=== PATIENT | female | born 1990 | race Caucasian/White ===

== ENCOUNTER 2016-09-19 14:09 | Emergency (ER) | payer SELFPAY ==
[~2016-09-19] VITALS: Ht 162.6 cm; Wt 58.3 kg
--- OUTSIDE RECORDS SUMMARY | 2016-09-19 14:14 | XMS REPORT | Continuity of Care Document ---
Author Author [facility] Address Unknown Phone Unavailable Allergies Medications Problems Date Dx Coded Attending Type Code Diagnosis Diagnosed By 07/19/2012 SARAH CHINICA L D 785.1 PALPITATIONS 07/19/2012 SARAH CHINICA L D 786.05 SHORTNESS OF BREATH 07/19/2012 CHRISTINA CHINSSICA L D 786.50 CHEST PAIN NOS 07/20/2012 CHRISTINA CHINSSICA L D 623.5 NONINFECT VAG LEUKORRHEA 07/20/2012 SARAH CHINICA L D 785.1 PALPITATIONS 07/20/2012 SARAH CHINICA L D V70.8 GENERAL MEDICAL EXAM NEC 07/17/2013 SARAH CHINICA L D 724.5 BACKACHE NOS 11/27/2013 SARAH CHINICA L D 780.8 GENERAL HYPERHIDROSIS 11/27/2013 SARAH CHINICA L D 786.2 COUGH 11/27/2013 SARAH CHINICA L D V01.1 TUBERCULOSIS CONTACT 12/27/2013 ALEXEI PACHECO 783.21 LOSS OF WEIGHT 12/27/2013 ALEXEI PACHECO 785.6 ENLARGEMENT LYMPH NODES Procedures Code Description [place] [address] TTE W/DOPPLER, COMPLETE SARAH CHINICA Riddhi 07/19/2012 98129 ROUTINE VENIPUNCTURE SARAH CHINICA Riddhi 07/20/2012 05217 COMPREHEN METABOLIC PANEL SARAH CHINICA Riddhi 07/20/2012 77354 ACUTE HEPATITIS PANEL SARAH CHINICA Riddhi 07/20/2012 64852 ASSAY THYROID STIM HORMONE SARAH CHINICA L 07/20/2012 13849 COMPLETE CBC W/AUTO DIFF WBC SARAH CHINICA L 07/20/2012 00707 HIV-1/HIV-2, SINGLE ASSAY OMER CHIN 07/20/2012 17005 CULTURE, BACTERIA, OTHER OMER CHIN L 07/20/2012 54736 SMEAR, GRAM STAIN OMER CHIN L 07/20/2012 33842 X-RAY EXAM OF THORACIC SPINE OMER CHIN 07/17/2013 78543 ROUTINE VENIPUNCTURE OMER CHIN 11/27/2013 87074 CHEST X-RAY OMER CHIN L 11/27/2013 82872 COMPREHEN METABOLIC PANEL OMER CHIN 11/27/2013 90423 BL SMEAR W/DIFF WBC COUNT OMER CHIN L 11/27/2013 82650 COMPLETE CBC, AUTOMATED OMER CHIN L 11/27/2013 67412 MYCOPLASMA ANTIBODY OMER CHIN 11/27/2013 71465 ASSAY OF TOTAL THYROXINE ALEXEI PACHECO Linda 12/27/2013 83099 ASSAY OF FREE THYROXINE ALEXEI PACHECO Linda 12/27/2013 20236 ASSAY THYROID STIM HORMONE LIAT PÉREZPALEXEI D 12/27/2013 90263 ASSAY, TRIIODOTHYRONINE (T3) ALEXEI PACHECO D 12/27/2013 25333 FREE ASSAY (FT-3) ALEXEI PACHECO D 12/27/2013 04050 BL SMEAR W/DIFF WBC COUNT ALEXEI PACHECO D 12/27/2013 65127 COMPLETE CBC, AUTOMATED ALEXEI PACHECO D 12/27/2013 37516 MANUAL RETICULOCYTE COUNT ALEXEI PACHECO D 12/27/2013 86527 RBC SED RATE, NONAUTOMATED ALEXEI PACHECO D 12/27/2013 92990 HETEROPHILE ANTIBODIES ALEXEI PACHECO D 12/27/2013 Results Test Result Range CMP - 07/20/12 17:21 Osmo Calculated 275 MOSM 261-280 Sodium 142 MMOLL 137-145 T. Protein 7.8 G/DL 6.3-8.2 Potassium 3.6 MMOLL 3.6-5.0 T Bili 0.4 MG/DL 0.2-1.3 Calcium 9.1 MG/DL 8.4-10.2 BUN 14 MG/DL 7-21 Chloride 106 MMOLL 98-107 AST 20 U/L 15-46 ALT 18 U/L 7-56 Albumin 4.6 G/DL 3.5-5.0 A/G Ratio 1.4 RATIO 1.2-2.2 Bun/Creat 21.8 RATIO 7-25 Alk Phos 57 U/L 38-126 CO2 23 MMOLL 22-30 Glucose 93 MG/DL 65-110 Globulin 3.3 2.4-3.5 Creatinine 0.6 MG/DL 0.7-1.5 COMPLETE BLOOD COUNT - 07/20/12 17:21 Platelet 321 10^3u 142-424 MPV 10.1 FL 9.4-12.4 [place] # 0.61 10^3u 0.0-1.0 RBC 3.92 10^6u 4.04-6.13 [place] % 9.0 % 0-12 RDW 11.3 % 11.6-14.8 Neut # 3.82 10^3u 2.0-6.9 Neut % 56.7 % 37-80 WBC 6.75 10^3u 4.60-10.20 MCV 92.1 FL 80.0-97.0 Baso # 0.03 10^3u 0.0-0.1 Baso % 0.4 % 0-2 Eos # 0.42 10^3u 0-7 Eos % 6.2 % 0.0-0.7 Lymph % 27.7 % 10-50 MCHC 34.9 G/DL 31.8-35.4 MCH 32.1 PG 27.0-31.2 Lymph # 1.87 10^3u 0.6-3.4 HGB 12.6 G/DL 12.2-18.1 HCT 36.1 % 37.7-53.7 TSH - 07/20/12 17:21 TSH 2.25 UIUML 0.35-4.94 Hepatitis Panel - 07/20/12 17:21 Hepatitis Panel SMR Culture Genital - 07/20/12 17:21 Culture Genital [facility] HIV Antibodies, Western Blot - 07/20/12 17:21 HIV Antibodies, Western Blot NON-REACTIVE NON-REACTIVE COMPLETE BLOOD COUNT - 11/27/13 16:46 Platelet 274 10^3u 142-424 MPV 10.2 FL 9.4-12.4 [place] # 0.59 10^3u 0.0-1.0 Milam 6.0 RBC 3.93 10^6u 4.04-6.13 [place] % 10.4 % 0-12 RDW 11.3 % 11.6-14.8 Seg 43.0 Neut # 2.70 10^3u 2.0-6.9 Neut % 47.4 % 37-80 WBC 5.69 10^3u 4.60-10.20 MCV 94.1 FL 80.0-97.0 Baso # 0.03 10^3u 0.0-0.1 Baso % 0.5 % 0-2 Eos 12.0 Eos # 0.47 10^3u 0-0.7 Eos % 8.3 % 0-7 Lymph % 33.4 % 10-50 MCHC 34.6 G/DL 31.8-35.4 MCH 32.6 PG 27.0-31.2 Lymph # 1.90 10^3u 0.6-3.4 Lymph 39.0 HGB 12.8 G/DL 12.2-18.1 HCT 37.0 % 37.7-53.7 CMP - 11/27/13 16:46 Osmo Calculated 278 MOSM 261-280 Sodium 144 MMOLL 137-145 T. Protein 7.7 G/DL 6.3-8.2 Potassium 4.0 MMOLL 3.6-5.0 T Bili 0.5 MG/DL 0.2-1.3 Calcium 9.6 MG/DL 8.4-10.2 BUN 11 MG/DL 7-21 Chloride 107 MMOLL 98-107 AST 16 U/L 15-46 ALT 18 U/L 7-56 Albumin 4.6 G/DL 3.5-5.0 A/G Ratio 1.5 RATIO 1.2-2.2 Bun/Creat 15.9 RATIO 7-25 Alk Phos 54 U/L 38-126 CO2 24 MMOLL 22-30 Glucose 86 MG/DL 65-110 Globulin 3.1 2.4-3.5 Creatinine 0.7 MG/DL 0.7-1.5 Mycoplasma Antibody - 11/27/13 16:46 Mycoplasma Antibody NEG Negative COMPLETE BLOOD COUNT - 12/27/13 15:25 Platelet 299 10^3u 142-424 MPV 10.3 FL 9.4-12.4 [place] # 0.76 10^3u 0.0-1.0 Milam 10.0 RBC 3.98 10^6u 4.04-6.13 [place] % 10.5 % 0-12 RDW 11.4 % 11.6-14.8 Seg 48.0 Neut # 3.91 10^3u 2.0-6.9 Neut % 53.8 % 37-80 WBC 7.26 10^3u 4.60-10.20 MCV 93.7 FL 80.0-97.0 Baso # 0.03 10^3u 0.0-0.1 Baso % 0.4 % 0-2 Eos 10.0 Eos # 0.63 10^3u 0-0.7 Eos % 8.7 % 0-7 Lymph % 26.6 % 10-50 MCHC 34.6 G/DL 31.8-35.4 MCH 32.4 PG 27.0-31.2 Lymph # 1.93 10^3u 0.6-3.4 Lymph 32.0 HGB 12.9 G/DL 12.2-18.1 HCT 37.3 % 37.7-53.7 [place] Screen - 12/27/13 15:25 [place] Screen NEG Negative Thyroid Panel - 12/27/13 15:25 TSH 0.99 UIUML 0.35-4.94 T4 6.60 UG/DL 4.87-11.72 Free T4 1.10 NG/DL 0.70-1.48 Free T3 2.91 PG/ML 1.71-3.71 T3 1.13 NG/ML 0.58-1.59 Sed Rate (ESR) - 12/27/13 15:25 Sed Rate (ESR) 6 MM/hr 5-20 Retic Count - 12/27/13 15:25 Retic Absolute 93717 cells [id number] Retic Count Auto 0.4 % EKG - 05/28/14 08:08 EKG SMR Encounters ACCT No. Visit Date/Time Discharge Status Pt. Type Provider Facility Loc./Unit Complaint [id number] 05/27/2014 16:03:00 05/27/2014 16 :03:00 DIS Outpatient BRAULIO TYSON, [facility] OTHER [id number] 05/27/2014 16:03:00 05/27/2014 16 :03:00 DIS Outpatient BRAULIO TYSON, [facility] OTHER [id number] 01/06/2014 17:45:00 01/06/2014 17 :45:00 DIS Outpatient LIAT [facility] OTHER [id number] 12/27/2013 15:11:00 12/27/2013 15 :11:00 DIS Outpatient LIAT [facility] OTHER [id number] 11/27/2013 16:38:00 11/27/2013 16 :38:00 DIS Outpatient [facility] OTHER [id number] 07/17/2013 16:07:00 07/17/2013 16 :07:00 DIS Outpatient OLGUIN [facility] OTHER [id number] 07/20/2012 17:00:00 07/20/2012 17 :00:00 DIS Outpatient OLGUIN [facility] OTHER [id number] 07/19/2012 15:15:00 07/19/2012 15 :15:00 DIS Outpatient OLGUIN [facility] OTHER
--- OUTSIDE RECORDS SUMMARY | 2016-09-19 14:15 | XMS REPORT ---
Author Author [facility] Organization [facility] Address [address] [place], [place] [id number] Phone [phone] Care Team Providers Care Health Claims Examiner Name Role Phone OMER CHIN PP [phone] Summary purpose CCDA Sent to [facility] Chief Complaint and Reason for Visit No authorized Reason for Visit (Admitting Diagnosis) is available for this visit. Problem list No authorized problems tracked for continuity of care are available for this visit. Encounters No authorized problems tracked for encounter diagnoses are available for this visit. Medications No home medications recorded for this patient visit Allergies, adverse reactions, alerts No allergy information is available for this patient. Immunizations No immunizations recorded for this patient visit Relevant diagnostic tests and/or laboratory data No authorized results are available for this patient visit History of procedures No procedures recorded for this patient visit. Functional status No functional or cognitive status observations are available for this visit. Vital signs No authorized vital signs are available for this visit. Social history No Social History or smoking status observations were recorded for this visit. ( Unknown if ever smoked.) Treatment Plan No treatment plan text is available for this visit. Hospital discharge instructions No discharge instruction text is available for this visit.
--- OUTSIDE RECORDS SUMMARY | 2016-09-19 14:15 | XMS REPORT ---
Author Author [facility] Organization [facility] Address [address] [place], [place] [id number] Phone [phone] Care Team Providers Care Scrum Master Name Role Phone OMER CHIN PP [phone] Summary purpose CCDA Sent to [facility] Chief Complaint and Reason for Visit No [...] for this patient visit History of procedures Procedure Code Code Type Description Date Performed Performing Physician 89312 CPT-4 ELECTROCARDIOGRAM REPORT 05-27-2014 ZOEY NAYAK Functional status No functional or cognitive status [...]
[2016-09-19 14:17] VITALS: Ht 162.6 cm; Wt 58.3 kg
[2016-09-19] MEDS ORDERED: NO ROUTINE MEDS (14:42)
[2016-09-19] MEDS ORDERED: NORMAL SALINE 1,000 ML IV ONE (14:44)
[2016-09-19] MEDS ORDERED: ASPIRIN 81 MG CHEWABLE TABLET PO ONE (14:45)
--- OUTSIDE RECORDS SUMMARY | 2016-09-19 14:49 | XMS REPORT | Continuity of Care Document ---
Author Author [facility] Address Unknown Phone Unavailable [...] Procedures Code Description [place] [address] TTE W/DOPPLER, COMPLETE SARAH CHINICA Riddhi 07/19/2012 69686 ROUTINE VENIPUNCTURE SARAH CHINICA Riddhi 07/20/2012 63338 COMPREHEN METABOLIC PANEL SARAH CHINICA Riddhi 07/20/2012 09748 ACUTE HEPATITIS PANEL SARAH CHINICA Riddhi 07/20/2012 64321 ASSAY THYROID STIM HORMONE SARAH CHINICA L 07/20/2012 79671 COMPLETE CBC W/AUTO DIFF WBC SARAH CHINICA L 07/20/2012 30665 HIV-1/HIV-2, SINGLE ASSAY OMER CHIN 07/20/2012 03702 CULTURE, BACTERIA, OTHER OMER CHIN L 07/20/2012 98468 SMEAR, GRAM STAIN OMER CHIN L 07/20/2012 12735 X-RAY EXAM OF THORACIC SPINE OMER CHIN 07/17/2013 20191 ROUTINE VENIPUNCTURE OMER CHIN 11/27/2013 03412 CHEST X-RAY OMER CHIN L 11/27/2013 28074 COMPREHEN METABOLIC PANEL OMER CHIN 11/27/2013 16174 BL SMEAR W/DIFF WBC COUNT OMER CHIN L 11/27/2013 34402 COMPLETE CBC, AUTOMATED OMER CHIN L 11/27/2013 72236 MYCOPLASMA ANTIBODY OMER CHIN 11/27/2013 23330 ASSAY OF TOTAL THYROXINE ALEXEI PACHECO Linda 12/27/2013 75909 ASSAY OF FREE THYROXINE ALEXEI PACHECO Linda 12/27/2013 83620 ASSAY THYROID STIM HORMONE LIAT PÉREZPALEXEI D 12/27/2013 44280 ASSAY, TRIIODOTHYRONINE (T3) ALEXEI PACHECO D 12/27/2013 58377 FREE ASSAY (FT-3) ALEXEI PACHECO D 12/27/2013 85282 BL SMEAR W/DIFF WBC COUNT ALEXEI PACHECO D 12/27/2013 14043 COMPLETE CBC, AUTOMATED ALEXEI PACHECO D 12/27/2013 54796 MANUAL RETICULOCYTE COUNT ALEXEI PACHECO D 12/27/2013 04949 RBC SED RATE, NONAUTOMATED ALEXEI PACHECO D 12/27/2013 88734 HETEROPHILE ANTIBODIES ALEXEI PACHECO D 12/27/2013 Results [...] 321 10^3u 142-424 MPV 10.1 FL 9.4-12.4 [place] # 0.61 10^3u 0.0-1.0 RBC 3.92 10^6u 4.04-6.13 [place] % 9.0 % 0-12 RDW 11.3 % [...] Culture Genital - 07/20/12 17:21 Culture Genital [facility] HIV Antibodies, Western Blot - 07/20/12 17:21 HIV Antibodies, Western Blot NON-REACTIVE NON-REACTIVE COMPLETE BLOOD COUNT - 11/27/13 16:46 Platelet 274 10^3u 142-424 MPV 10.2 FL 9.4-12.4 [place] # 0.59 10^3u 0.0-1.0 [place] 6.0 RBC 3.93 10^6u 4.04-6.13 [place] % 10.4 % 0-12 RDW 11.3 % [...] 299 10^3u 142-424 MPV 10.3 FL 9.4-12.4 [place] # 0.76 10^3u 0.0-1.0 [place] 10.0 RBC 3.98 10^6u 4.04-6.13 [place] % 10.5 % 0-12 RDW 11.4 % [...] 12.9 G/DL 12.2-18.1 HCT 37.3 % 37.7-53.7 [place] Screen - 12/27/13 15:25 [place] Screen NEG Negative Thyroid Panel - 12/27/13 15:25 TSH 0.99 UIUML 0.35-4.94 T4 6.60 UG/DL 4.87-11.72 Free T4 1.10 NG/DL 0.70-1.48 Free T3 2.91 PG/ML 1.71-3.71 T3 1.13 NG/ML 0.58-1.59 Sed Rate (ESR) - 12/27/13 15:25 Sed Rate (ESR) 6 MM/hr 5-20 Retic Count - 12/27/13 15:25 Retic Absolute 00312 cells [id number] Retic Count Auto 0.4 % EKG - 05/28/14 08:08 EKG SMR Encounters ACCT No. Visit Date/Time Discharge Status Pt. Type Provider Facility Loc./Unit Complaint [id number] 05/27/2014 16:03:00 05/27/2014 16 :03:00 DIS Outpatient BRAULIO TYSON, [facility] OTHER [id number] 05/27/2014 16:03:00 05/27/2014 16 :03:00 DIS Outpatient BRAULIO TYSON, [facility] OTHER [id number] 01/06/2014 17:45:00 01/06/2014 17 :45:00 DIS Outpatient LIAT [facility] OTHER [id number] 12/27/2013 15:11:00 12/27/2013 15 :11:00 DIS Outpatient LIAT [facility] OTHER [id number] 11/27/2013 16:38:00 11/27/2013 16 :38:00 DIS Outpatient [facility] OTHER [id number] 07/17/2013 16:07:00 07/17/2013 16 :07:00 DIS Outpatient OLGUIN [facility] OTHER [id number] 07/20/2012 17:00:00 07/20/2012 17 :00:00 DIS Outpatient OLGUIN [facility] OTHER [id number] 07/19/2012 15:15:00 07/19/2012 15 :15:00 DIS Outpatient OLGUIN [facility] OTHER
--- NOTE | 2016-09-19 14:51 | ERPDOC ---
Departure Disposition Decision Date: September 19, 2016 Disposition Decision Time: 16:32 Disposition: 01 DISCHARGED HOME, SELF-CARE Impression Impression Impression: Primary Impression: Non-cardiac chest pain Severity: Moderate Condition: Improved Seen By: Physician only Patient Instructions: Noncardiac Chest Pain (ED) Problems/Meds/Labs Reviewed?: Yes Medications reviewed and manag: Yes Additional Instructions: Continue with rehab -- congrats on making the decision to go. Your labs and EKG today look great. Follow up care ordered?: Yes Mental Status: Alert, Oriented HPI - Chest Pain General Chief Complaint: Chest Pain Stated Complaint: CHEST PAINS, DIZZY, OUT OF BREATHE, HAS HEART COND Time Seen by Provider: 14:17 HPI - Chest Pain Initial Comments 26-year-old female presents with chest pain. Patient is 5 days clean from methamphetamine. She's been using fairly consistently for about 10 years. She asked to be admitted to an inpatient rehabilitation and has been there 5 days. She states that when she doesn't use sometimes she feels funny and feels like her heart goes too slow, which she also feels right now.She wonders if this is just what normal feels like. No n/v, no diaphoresis. No diarrhea. does feel slightly dyspneic. 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 Surgical History Denies Surgeries Social History Smoking Status: Current some day smoker Substance Use Type: former substance user Alcohol Intake: none Record Review Pertinent history updated: Yes Review of Systems Cardiovascular Cardiac: see HPI Rhythm/Rate: see HPI GI Upper Abdomen: see HPI All other Systems All Other Systems: Reviewed and Negative Physical Exam General General Nourishment: well nourished, no acute distress, adult General Body Habitus: well groomed Vitals and Pain First Documented Vital Signs Date Time Temp Pulse Resp B/P Pulse Ox O2 Delivery O2 Flow Rate FiO2 09/19/16 14:15 141/70 09/19/16 14:17 98.6 79 16 97 Room Air Weight: Kilograms: Height (feet): Height (inches): Triage Pain Scale: Normal Exams: Head: Normocephalic w/o trauma Chest/Resp: Clear all davis, with good airflow, and symmetry bilaterally CV: Regular rate and rhythm, without murmur or gallop, Pulses 2+ all extremities, capillary refill, <2 seconds all ext., no pedal edema noted Abdomen: Bowel sounds positive, soft, non-tender, non-distended, no hepatosplenomegaly, masses or bruits noted Neurologic: Patient is alert, and oriented, cranial nerves, motor/sensory/ cerebellar, exams w/o gross deficits, to observation Psychiatric: Patient exhibits, appropriate attention, emotion and affect Differential Diagnoses Considering: Acute ND, Anxiety/Panic, Costochondritis, Pancreatitis, Pericarditis, Pneumothorax, Pneumonia, PSVT, Pulmonary Edema, Pulmonary Embolus Progress Results/Orders Orders Procedure Category Date Status Time Cbc W/Auto LAB 09/19/16 Complete Diff-Reflex Manual 14:44 Cmp - Comprehensive LAB 09/19/16 Complete Metabolic 14:44 Probnp LAB 09/19/16 Complete 14:44 Troponin I W LAB 09/19/16 Complete Hemolysis Index 14:44 INR LAB 09/19/16 Complete 14:44 Ua, Dip Wreflex LAB 09/19/16 Complete Microsc & Loom Changer 14:44 D-Dimer LAB 09/19/16 Complete 14:44 Tsh - Thyroid Stim LAB 09/19/16 Complete Hormone 14:44 EKG EKG 09/19/16 Logged 14:44 Chest, Pa & Lateral RAD 09/19/16 Resulted 14:44 Iv Lock (Ed Only) EDM 09/19/16 Transmitted 14:44 Normal Saline (Normal PHA 09/19/16 Complete Saline Iv) 14:44 Aspirin (Asa) PHA 09/19/16 Complete 14:45 LAB 09/19/16 Complete Qualitative, Urine 14:44 Lab Results Laboratory Tests Test 09/19/16 14:59 09/19/16 15:00 Urine Collection Type Cleancatch-midstream Urine Color Yellow Urine Turbidity Clear Urine pH 6.5 Urine Specific [place] <=1.005 Urine Protein Negative Urine Glucose (UA) Negative Urine Ketones Negative Urine Blood Negative Urine Nitrite Negative Urine Bilirubin Negative Urine Urobilinogen 0.2EU/DL Urine Leukocyte Esterase Trace Urinalysis Comment Microscopic not ind. Urine Test Negative White Blood Count 9.6T/MM3 Red Blood Count 4.36M/MM3 Hemoglobin 13.6GM/DL Hematocrit 40.3% Mean Corpuscular Volume 92.4UM3 Mean Corpuscular Hemoglobin 31.2UUG Mean Corpuscular Hemoglobin Concent 33.7GM/DL RDW Standard Deviation 40.6FL Platelet Count 356T/MM3 Mean Platelet Volume 10.1UM3 Immature Granulocyte % (Auto) 0.5% Neutrophils (%) (Auto) 61.6% Lymphocytes (%) (Auto) 22.7% Monocytes (%) (Auto) 7.7% Eosinophils (%) (Auto) 6.7% Basophils (%) (Auto) 0.8% Absolute Immature Granulocyte (auto 0.05T/MM3 Absolute Neutrophils (auto) 5.9T/MM3 Absolute Lymphocytes (auto) 2.2T/MM3 Absolute Monocytes (auto) 0.7T/MM3 Absolute Eosinophils (auto) 0.6T/MM3 Absolute Basophils (auto) 0.1T/MM3 Prothromb Time International Ratio 0.86 D-Dimer < 150NG/ML Turbidity < 20 Sodium Level 145MEQ/L Potassium Level 4.4MEQ/L Chloride Level 105MEQ/L Carbon Dioxide Level 26MEQ/L Anion Gap 14MEQ/L Blood Urea Nitrogen 12.0MG/DL Creatinine 0.6MG/DL Glomerular Filtration Rate Calc 122 BUN/Creatinine Ratio 20RATIO Glucose Level 104MG/DL Calculated Osmolality 279MOSM/KG Calcium Level 9.6MG/DL Total Bilirubin 0.40MG/DL Icterus Index < 2 Aspartate Amino Transf (AST/SGOT) 20U/L Alanine Aminotransferase (ALT/SGPT) 32U/L Alkaline Phosphatase 66U/L Troponin I < 0.012ng/ml OM-Moi-G-Type Natriuretic Peptide 76PG/ML Total Protein 7.5G/DL Albumin 4.6G/DL Globulin 2.9G/DL Albumin/Globulin Ratio 1.6RATIO Thyroid Stimulating Hormone (TSH) 1.28MIU/L Chemistry Specimen Hemolysis 40 Medications Current ED Medications Sodium Chloride (Normal Saline IV) 1,000 ml @ 1,000 mls/hr Q1H ONCE IV Last administered on 09/19/16 15:38; Start 09/19/16 at 14:44; Stop 09/19/16 at 15:43 ; Status DC Aspirin (ASA) 324 mg O ONCE PO Last administered on 09/19/16 15:38; Start at 14:45; Stop 09/19/16 at 14:47; Status DC Progress Progress Troponin is neg. EKG is normal. Pt is hematologically stable. Recommend she continue with rehab and follow up with a primary care doctor. SHELLEY ROMERO MD September 19, 2016 14:51
[2016-09-19 15:12] LABS: BASOPHILS # (AUTO) 0.1 T/MM3 (0-0.2); BASOPHILS % (AUTO) 0.8 % (0-2); EOSINOPHILS # (AUTO) 0.6 T/MM3 (0-0.5); EOSINOPHILS % (AUTO) 6.7 % (0-4); HCT - HEMATOCRIT 40.3 % (36-46); HGB - HEMOGLOBIN 13.6 GM/DL (12-16); IMMATURE GRANULOCYTE # (AUTO) 0.05 T/MM3 (0.00-0.03); IMMATURE GRANULOCYTE % (AUTO) 0.5 % (0.0-0.5); LYMPHOCYTES # (AUTO) 2.2 T/MM3 (1-4.8); LYMPHOCYTES % (AUTO) 22.7 % (23-45); MEAN CORPUSCULAR HGB 31.2 UUG (26-34); MEAN CORPUSCULAR HGB CONC(MCHC 33.7 GM/DL (31-37); MEAN CORPUSCULAR VOLUME 92.4 UM3 (80-100); MEAN PLATELET VOLUME 10.1 UM3 (9.4-12.4); MONOCYTES # (AUTO) 0.7 T/MM3 (0-0.8); MONOCYTES % (AUTO) 7.7 % (0-9.0); NEUTROPHILS #(AUTO)-ABSOLUTE 5.9 T/MM3 (1.8-7.7); NEUTROPHILS % (AUTO) 61.6 % (33-66); RED BLOOD COUNT 4.36 M/MM3 (4.00-5.20); WBC - WHITE BLOOD COUNT 9.6 T/MM3 (4.5-11.0)
[2016-09-19 15:12] LABS: BLOOD, URINE NEGATIVE (NEGATIVE); COLOR,URINE YELLOW (YELLOW); LEUKOCYTE ESTERASE ,URINE TRACE (NEGATIVE); NITRITE,URINE NEGATIVE (NEGATIVE); UROBILINOGEN,URINE 0.2 EU/DL (NORMAL)
[2016-09-19 15:22] LABS: ALBUMIN 4.6 G/DL (3.5-5.0); ALBUMIN/GLOBULIN RATIO 1.6 RATIO (1.1-2.2); ALKALINE PHOSPHATASE 66 U/L (38-126); ALT (SGPT) 32 U/L (9-52); ANION GAP 14 MEQ/L (5-15); AST (SGOT) 20 U/L (14-36); BUN/CREATININE RATIO 20 RATIO (6-26); CALCIUM 9.6 MG/DL (8.4-10.2); CHLORIDE 105 MEQ/L (98-107); CO2 - CARBON DIOXIDE 26 MEQ/L (22-30); CREATININE 0.6 MG/DL (0.7-1.2); GLOMERULAR FILTRATION RATE 122; GLUCOSE 104 MG/DL (65-110); POTASSIUM 4.4 MEQ/L (3.6-5); SODIUM 145 MEQ/L (134-144); TOTAL PROTEIN 7.5 G/DL (6.3-8.2)
--- NOTE | 2016-09-19 15:25 | NUR ---
TO [facility] PER CART
--- NOTE | 2016-09-19 15:31 | NUR ---
RETURNED FROM [facility]
[2016-09-19 15:33] LABS: INR 0.86 (0.77-1.03)
[2016-09-19 15:47] LABS: PROBNP 76 PG/ML (0-175)
[2016-09-19 16:05] LABS: THYROID STIM HORMONE-TSH 1.28 MIU/L (0.47-4.68)
--- NOTE | 2016-09-19 16:13 | NUR ---
ACTIVITY AMB TO [facility]
--- NOTE | 2016-09-19 16:23 | DI ---
Indication: ITS.REASON: chest pain CHEST, PA LATERAL: Comparison: None Technique: PA and lateral view Findings: Patient shows normal heart, mediastinum and central vascularity. Lungs are clear. No acute bony findings noted. Impression: Unremarkable two-view chest. .
--- NOTE | 2016-09-19 16:50 | NUR ---
DISMISSAL PT HAS BEEN TALKING ON HER PHONE CONSTANTLY IN ER. NO CP IN ER. MONITOR SR. VS STABLE. DISCHARGED AMB
[2016-09-19 18:31] VITALS: BP 117/72; PULSE 67; RESP 16; TEMP 98.4; O2SAT 92
== END 2016-09-19 16:52 | disposition home or self-care (01) ==
LOC: ED 14:09
DX: R07.89 Other chest pain (principal); R00.1 Bradycardia, unspecified; R06.00 Dyspnea, unspecified
CPT/HCPCS: 80053; 81003; 81025; 83880; 84443; 84484; 85025; 85379; 85610; 93005